=== PATIENT | female | born 1960 | race Caucasian/White ===

== ENCOUNTER → 2018-11-04 | Outpatient (CLI) | payer BC | LOC: MC.RAD 06:53 | DX: Z12.31 Encounter for screening mammogram for malignant neoplasm of breast (principal) ==

== ENCOUNTER 2019-07-14 12:07 | Emergency (ER) | payer BC ==
[~2019-07-14] VITALS: Ht 157.5 cm; Wt 81.8 kg
[2019-07-14 12:09] VITALS: TEMP 98.4
[2019-07-14 12:37] LABS: BASO % 0.3 % (0.0-2.0); EOS % 0.3 % (0-4.0); GRAN # 5.3 (1.4-6.5); GRAN % 71.5 % (42.2-75.2); HEMOGLOBIN 11.2 g/dl (12.5-16.0); LYMPH # 1.4 (1.2-3.4); LYMPH % 18.5 % (20.0-51.0); MEAN CELL VOLUME 87 fl (80.0-100.0); MEAN CORPUSCULAR HEMOGLOBIN 32 pg (27.0-31.0); MEAN CORPUSCULAR HGB CONC 37 g/dl (33.0-37.0); MEAN PLATELET VOLUME 8.6 fl (7.4-10.4); MONO # 0.6 (0.1-0.6); MONO % 8.6 % (1.7-9.3); PLATELET COUNT 276 K/mm3 (130-400); REDCELL DISTRIBUTION WIDTH-CV 12.6 % (11.5-14.5)
[2019-07-14 12:40] LABS: HEMATOCRIT 30.6 % (37.0-47.0)
[2019-07-14 12:47] LABS: ALBUMIN 4.5 gm/dL (3.5-5.0); BILIRUBIN,TOTAL 0.9 mg/dL (0.0-1.0); CALCIUM 9.3 mg/dL (8.4-10.2); CREATININE, serum 0.76 (0.52-1.25); POTASSIUM 3.3 mmol/L (3.4-5.0); TOTAL PROTEIN 7.3 gm/dL (6.4-8.2)
[2019-07-14] MEDS ORDERED: MOBIC15 MG PO (13:07)
[2019-07-14] MEDS ORDERED: PRINIVIL20 MG PO (13:08)
[2019-07-14] MEDS ORDERED: LEXAPRO 10MG10 MG PO (13:08)
[2019-07-14] MEDS ORDERED: SINGULAIR 110 MG/TAB PO (13:08)
[2019-07-14 14:23] VITALS: BP 132/54; PULSE 68
== END 2019-07-14 14:23 | disposition home or self-care (01) ==
LOC: COL.ER 12:07
PROVIDERS: Emergency Medicine
DX: S01.81XA Laceration without foreign body of other part of head, initial encounter (principal); R40.2412 Glasgow coma scale score 13-15, at arrival to emergency department; I10 Essential (primary) hypertension; Z23 Encounter for immunization; W01.0XXA Fall on same level from slipping, tripping and stumbling without subsequent striking against object, initial encounter; Y92.59 Other trade areas as the place of occurrence of the external cause

== ENCOUNTER 2020-05-21 13:11 | Inpatient (IN) | payer BC ==
[~2020-05-21] VITALS: Ht 157.5 cm; Wt 81.1 kg
[~2020-05-21 13:11] MED LIST: LEXAPRO 10MG10 MG PO; MOBIC15 MG PO; PRINIVIL20 MG PO; SINGULAIR 110 MG/TAB PO
[2020-05-21 15:10] LABS: BASO % 0.4 % (0.0-2.0); EOS % 0.3 % (0-4.0); GRAN # 5.8 (1.4-6.5); GRAN % 85.6 % (42.2-75.2); HEMATOCRIT 30.5 % (37.0-47.0); LYMPH # 0.5 (1.2-3.4); MEAN CELL VOLUME 90 fl (80.0-100.0); MEAN CORPUSCULAR HEMOGLOBIN 32 pg (27.0-31.0); MEAN CORPUSCULAR HGB CONC 36 g/dl (33.0-37.0); MEAN PLATELET VOLUME 9.4 fl (7.4-10.4); MONO # 0.4 (0.1-0.6); MONO % 6.1 % (1.7-9.3); PLATELET COUNT 209 K/mm3 (130-400); REDCELL DISTRIBUTION WIDTH-CV 14.8 % (11.5-14.5)
[2020-05-21 15:20] LABS: ALBUMIN 4.8 gm/dL (3.5-5.0); BILIRUBIN,TOTAL 1.8 mg/dL (0.0-1.0); CALCIUM 9.6 mg/dL (8.4-10.2); CREATININE, serum 0.78 (0.52-1.25); POTASSIUM 4.7 mmol/L (3.4-5.0); TOTAL PROTEIN 8.2 gm/dL (6.4-8.2)
[2020-05-21 16:09] VITALS: BP 123/54; PULSE 80; TEMP 98.5
[2020-05-21 18:24] LABS: PH 5 (5-8); SQUAMOUS EPITHELIAL None Seen /hpf; URINE APPEARANCE Clear; URINE BACTERIA Rare /hpf; URINE BILIRUBIN Negative (NEGATIVE); URINE BLOOD Negative (NEGATIVE); URINE COLOR Yellow; URINE GLUCOSE Negative (NEGATIVE); URINE KETONE Trace (NEGATIVE); URINE LEUKOCYTE ESTERASE Negative (NEGATIVE); URINE NITRATE Negative (NEGATIVE); URINE PROTEIN(semi-quant) Negative (NEGATIVE); URINE RBC 0-2 /hpf; URINE UROBILINOGEN Negative (NEGATIVE)
--- NOTE | 2020-05-21 18:35 | NUR ---
PATIENT STATES SHE IS FEELING MUCH BETTER SINCE RECEIVING ZOFRAN. DENIES PAIN. CALL LIGHT IS WITHIN REACH.
[2020-05-21] MEDS ORDERED: NORVASC 5MG5 MG/TAB PO (19:02)
[2020-05-21] MEDS ORDERED: PROZAC 20MG20 MG PO (19:02)
[2020-05-21] MEDS ORDERED: PROTONIX 40MG T40 MG PO (19:03)
[2020-05-21] MEDS ORDERED: REQUIP 0.5MG0.5 MG PO (19:04)
[2020-05-21] MEDS ORDERED: TRIAMCINOLONE A15 GM TP (19:04)
[2020-05-21] MEDS ORDERED: PROVENTIL0.09 MG/A1 IH (19:04)
--- NOTE | 2020-05-21 19:09 | NUR ---
HOME MEDICATIONS REVIEWED WITH PATIENT AND MED REC UPDATED. DID NOTIFY JOSE OF ADDITIONS AND CHANGES. CALLED ORDERED NEPHROLOGY CONSULT TO DR. ESPARZA, HE WILL SEE HER IN THE MORNING.
[2020-05-21 19:26] VITALS: BP 96/55; PULSE 95; TEMP 98.4
--- NOTE | 2020-05-21 19:27 | NUR ---
WARNER Domínguez notified of Na level of 115.
--- NOTE | 2020-05-21 20:00 | NUR ---
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 Assessment complete. VS stable. Neuros WNL. Denies N/V/dizziness. Denies pain/shortness of breath. States she is just weak. IV to left [id number]@100ml/hr. Plan of care discussed for neuro checks [id number] understanding. Denies questions/concerns. Encouraged to call for needs. Call light in reach. Will monitor.
[2020-05-21 21:57] LABS: CALCIUM 8.6 mg/dL (8.4-10.2); CREATININE, serum 0.73 (0.52-1.25)
[2020-05-21 22:05] LABS: COLLECTION METHOD CLEAN CATCH
[2020-05-21 22:28] LABS: TSH w REFLEX 4.42 uIU/mL (0.465-4.680)
--- NOTE | 2020-05-21 22:40 | NUR ---
WARNER Domínguez notified of Na 115 and chloride of 81.
[2020-05-22] VITALS (7 sets, daily range): BP systolic 99–117; BP diastolic 45–57; PULSE 69–81; TEMP 97.8–98.4
--- NOTE | 2020-05-22 05:00 | NUR ---
Rested off and on this shift. Denies pain/nausea/shortness of breath. VS remained stable. Has been INTd since 2109. Fluid restriction enforced with 600 in PO and 400 IV. Neuros WNL. Denies needs. Call light in reach. Will monitor.
[2020-05-22 08:37] LABS: BASO % 0.3 % (0.0-2.0); EOS % 0.3 % (0-4.0); GRAN # 2.9 (1.4-6.5); GRAN % 76.1 % (42.2-75.2); LYMPH # 0.5 (1.2-3.4); MEAN CELL VOLUME 90 fl (80.0-100.0); MEAN CORPUSCULAR HGB CONC 35 g/dl (33.0-37.0); MEAN PLATELET VOLUME 9.5 fl (7.4-10.4); MONO # 0.4 (0.1-0.6); PLATELET COUNT 187 K/mm3 (130-400); RED BLOOD COUNT 3.05 M/mm3 (4.10-5.30)
--- NOTE | 2020-05-22 08:37 | NUR ---
FLORA NOTE: ONLY COMPLAINT IS NAUSEA WITHOUT EMESIS. TOLERATING BREAKFAST. DENIES PAIN. ZOFRAN GIVEN
[2020-05-22 08:48] LABS: CREATININE, serum 0.82 (0.52-1.25); HEMATOCRIT 27.5 % (37.0-47.0); HEMOGLOBIN 9.7 g/dl (12.5-16.0); MEAN CORPUSCULAR HEMOGLOBIN 32 pg (27.0-31.0); POTASSIUM 3.7 mmol/L (3.4-5.0)
--- NOTE | 2020-05-22 13:07 | NUR ---
Plan: To go home and be independent. Assessment: Patient reports that she resides in [place] and uses a cane for mobility. Patient reports that her PCP is Maritza Hollingsworth. Patient reports she obtains RX from [facility]. DTR is apart of her care Emili Raoul . Client denies home health care and reports she can drive herself home. Client denies having a DPOA. Action: SW educated patient on supports available to her. Patient indicated that she was independent. SW gave client her options. No additonal needs identified.
[2020-05-22 15:25] LABS: CALCIUM 9.1 mg/dL (8.4-10.2); CREATININE, serum 0.87 (0.52-1.25); POTASSIUM 4.1 mmol/L (3.4-5.0)
--- NOTE | 2020-05-22 19:53 | NUR ---
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 A&Ox3. Denies pain/shortness of breath/nasuea/dizzy. VS stable. Neuros WNL. Requesting HS dose of Requip now stating "my restless legs are bad and I usually take it twice a day." Dose given early. Plan of care discussd for this shift to include fluid restriction and no free water as well as need for stool specimen. Verbalizes understanding. Denies current needs. Call light in reach. Will monitor.
[2020-05-22 21:25] LABS: CALCIUM 8.7 mg/dL (8.4-10.2); CREATININE, serum 0.83 (0.52-1.25); POTASSIUM 3.8 mmol/L (3.4-5.0)
--- NOTE | 2020-05-22 21:45 | NUR ---
WARNER Domínguez notified of critical labs-Na 116 and Chloride of 82. No new orders received.
[2020-05-23 03:45] VITALS: BP 105/49; PULSE 73; TEMP 98.1
--- NOTE | 2020-05-23 05:47 | NUR ---
Rested off and on this shift. Fluid restriction encorced with no free water. Denies pain/shortness of breath. VS remained stable.
[2020-05-23 07:29] VITALS: BP 101/46; PULSE 68; TEMP 98.2
--- NOTE | 2020-05-23 08:38 | NUR ---
FLORA NOTE: PT AOX4. DENIES PAIN AND NAUSEA THIS AM. LAST BM MONDAY 05/21 PER PT. INDEPENDENT AMBULATION IN ROOM WITH CANE. FLAT AFFECT. LT FA IV INTACT. ATE 60% BREAKFAST.
[2020-05-23 09:06] LABS: CALCIUM 9.2 mg/dL (8.4-10.2); CREATININE, serum 0.84 (0.52-1.25); MAGNESIUM 1.9 mg/dL (1.6-2.3); POTASSIUM 3.9 mmol/L (3.4-5.0)
[2020-05-23 10:28] LABS: BASO % 0.6 % (0.0-2.0); EOS % 0.6 % (0-4.0); GRAN # 2.5 (1.4-6.5); GRAN % 71.7 % (42.2-75.2); LYMPH # 0.5 (1.2-3.4); MEAN CELL VOLUME 91 fl (80.0-100.0); MEAN CORPUSCULAR HGB CONC 36 g/dl (33.0-37.0); MEAN PLATELET VOLUME 9.9 fl (7.4-10.4); MONO # 0.5 (0.1-0.6); MONO % 13.5 % (1.7-9.3); PLATELET COUNT 173 K/mm3 (130-400); RED BLOOD COUNT 2.96 M/mm3 (4.10-5.30); REDCELL DISTRIBUTION WIDTH-CV 15.2 % (11.5-14.5)
[2020-05-23 10:59] LABS: HEMOGLOBIN 9.7 g/dl (12.5-16.0); MEAN CORPUSCULAR HEMOGLOBIN 33 pg (27.0-31.0)
[2020-05-23 11:16] VITALS: BP 99/52; PULSE 69; TEMP 98.3
[2020-05-23 12:32] LABS: CORTISOL, AM (0800) 15 ug/dL (3-20)
[2020-05-23 15:38] VITALS: BP 90/75; PULSE 78; TEMP 98.8
[2020-05-23 20:30] VITALS: BP 109/49; PULSE 76; TEMP 97.9
--- NOTE | 2020-05-23 20:30 | NUR ---
Initial shift assessment done- denies pain, states restless legs are acting up and would like her nightime requip at this time- will give now,,Tele on, on fluid restriction, and no free water- pt states understanding.
[2020-05-23 23:10] VITALS: BP 123/44; PULSE 81; TEMP 98.6
--- NOTE | 2020-05-24 06:00 | NUR ---
Quiet night- did not sleep much- states could not go back to sleep when awakened for vitals-- VSS, no requests.
[2020-05-24 06:25] VITALS: BP 120/57; PULSE 96; TEMP 98.3
[2020-05-24 06:41] LABS: BASO % 0.5 % (0.0-2.0); EOS % 0.5 % (0-4.0); GRAN # 2.9 (1.4-6.5); GRAN % 73.7 % (42.2-75.2); LYMPH # 0.6 (1.2-3.4); LYMPH % 13.9 % (20.0-51.0); MEAN CELL VOLUME 92 fl (80.0-100.0); MEAN CORPUSCULAR HGB CONC 35 g/dl (33.0-37.0); MONO # 0.4 (0.1-0.6); MONO % 10.9 % (1.7-9.3); PLATELET COUNT 202 K/mm3 (130-400); RED BLOOD COUNT 3.02 M/mm3 (4.10-5.30); REDCELL DISTRIBUTION WIDTH-CV 15.5 % (11.5-14.5)
[2020-05-24 06:51] LABS: HEMATOCRIT 27.9 % (37.0-47.0); HEMOGLOBIN 9.8 g/dl (12.5-16.0); MEAN CORPUSCULAR HEMOGLOBIN 32 pg (27.0-31.0)
--- NOTE | 2020-05-24 07:00 | NUR ---
Bedside shift report received from HAYLEY Lao. Pt in chair at side of bed resting, hoping to discharge clarita atkins provided per request, will continue to monitor.
[2020-05-24 07:01] LABS: CALCIUM 9.2 mg/dL (8.4-10.2); CREATININE, serum 0.78 (0.52-1.25); POTASSIUM 3.6 mmol/L (3.4-5.0)
[2020-05-24 07:55] VITALS: BP 101/43; PULSE 67; TEMP 98.2
[2020-05-24] MEDS ORDERED: LASIX 20MG TABL20 MG PO (09:02)
--- NOTE | 2020-05-24 09:47 | NUR ---
Assessment charted. PT anticipating dishcarge shortly. Confirmed with Dr. Giuliano bhatti to drive self home. Pt will change and gather belonngings and I will discharge shortly. Will continue to monitor.
--- NOTE | 2020-05-24 10:40 | NUR ---
Discharge completed at this time. INT dc'd, tip intact. Reviewed packet, new meds, scripts sent to pharmacy, f/u appointments reviewed. Pt left with all belongings, escorted out by myself. Pt to drive self home, okay per Giuliano. Criteria met.
[2020-05-25 04:22] LABS: ADRENOCORTICOTROPIC HORMONE 17 pg/mL (5-27)
== END 2020-05-24 10:40 | disposition home or self-care (01) | DRG 645 ==
LOC: MEDICAL 13:11
PROVIDERS: Hospitalist; Internal Medicine; Internal Medicine Nephrology; Physician Assistant; ADMIT Student in an Organized Health Care Education/Training Program
DX: E22.2 Syndrome of inappropriate secretion of antidiuretic hormone (principal); F32.9 Major depressive disorder, single episode, unspecified; D64.9 Anemia, unspecified; R11.10 Vomiting, unspecified; I10 Essential (primary) hypertension; E86.0 Dehydration; R63.0 Anorexia; E87.8 Other disorders of electrolyte and fluid balance, not elsewhere classified; E66.9 Obesity, unspecified; M54.30 Sciatica, unspecified side; Z68.32 Body mass index [BMI] 32.0-32.9, adult; Z90.710 Acquired absence of both cervix and uterus
CPT/HCPCS: 99222-AI; 99231-AI; 99233-AI; 99239; J1650; J2405; J7030

== ENCOUNTER → 2023-06-19 | Outpatient (CLI) | payer MEDICARE, OTHER ==
[~2023-06-19] MED LIST changes: +LASIX 20MG TABL20 MG PO; +NORVASC 5MG5 MG/TAB PO; +PROTONIX 40MG T40 MG PO; +PROVENTIL0.09 MG/A1 IH; +PROZAC 20MG20 MG PO; +REQUIP 0.5MG0.5 MG PO; +TRIAMCINOLONE A15 GM TP
== END ==
LOC: MHCPAIN 13:19
DX: M54.6 Pain in thoracic spine (principal); M79.18 Myalgia, other site; M48.54XS Collapsed vertebra, not elsewhere classified, thoracic region, sequela of fracture
CPT/HCPCS: G0463

== ENCOUNTER → 2023-07-03 | Outpatient (CLI) | payer MEDICARE, OTHER | LOC: MHCPAIN 14:44 | DX: M79.18 Myalgia, other site (principal); M54.6 Pain in thoracic spine; M48.54XS Collapsed vertebra, not elsewhere classified, thoracic region, sequela of fracture | CPT/HCPCS: J3301 ==

== ENCOUNTER → 2023-08-07 | Outpatient (CLI) | payer MEDICARE, OTHER | LOC: MHCPAIN 14:25 | DX: M48.54XS Collapsed vertebra, not elsewhere classified, thoracic region, sequela of fracture (principal); M79.18 Myalgia, other site | CPT/HCPCS: G0463 ==